=== PATIENT | male | born 1965 | race Caucasian/White ===

== ENCOUNTER 2023-06-26 10:30 | Emergency (ER) | payer BC, SELFPAY ==
[2023-06-26 10:35] VITALS: BP 172/86; PULSE 68; RESP 18; TEMP 36.3; O2SAT 97; BMI 30.7
--- NOTE | 2023-06-26 11:01 | ED.WOUNDLAC1 ---
HPI - Wound/Laceration General Chief Complaint: Wound/Laceration Stated Complaint: SORE SPOT ON BOTTOM OF R FOOT Time Seen by Provider: 06/26/23 10:50 Source: patient Mode of arrival: walk-in Limitations: no limitations History of Present Illness HPI narrative: is patient's here for evaluation of ongoing recurrent infection of his right foot. He is under the care of a Dr. North, environmental services supervisor. 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 He is here today because he was on his feet a lot yesterday while working and there is increasing swelling of his right great toe. He has severe neuropathy but he starting to develop just a small amount of discomfort and swelling and that's why he knows something is wrong. He did not take any leftover antibiotics. He has had a history of MRSA in the past. His last antibiotic use here in January was for cephalexin. He's not had fever shakes or chills. No red streaks or the dorsum of the foot or the lower leg. Related Data Home Medications Medication Instructions Recorded Confirmed amlodipine 5 mg tablet 5 mg PO DAILY 06/26/23 06/26/23 apixaban 5 mg tablet (Eliquis) 5 mg PO DAILY 06/26/23 06/26/23 carvedilol 12.5 mg tablet 12.5 mg PO DAILY 06/26/23 06/26/23 ibuprofen 800 mg tablet 800 mg PO Q8H PRN pain 06/26/23 06/26/23 Allergies Allergy/AdvReac Type Severity Reaction Status Date / Time diphenhydramine Allergy Intermediate Verified 06/26/23 10:39 [From Benadryl] [facility] Medical History (Updated 06/26/23 @ 11:05 by Justin Villeda MD) Surgical History (Updated 06/26/23 @ 10:52 by Anne Raines) Social History Smoking status: Never smoker Exam Narrative Exam Narrative: awake alert very pleasant does not appear in distress. Vital signs are stable he's afebrile. Problem focus examination Examination of his right foot shows good neuro she is a good vascular supply with good capillary refill and strong pulses. There is no pallor or edema. There is no lymphangitis or red streaking. The right great toe has a callus on the plantar surface such chronic with a small opening but despite pressure and trying to exude any purulent material there was no purulent material and this open sore. There is mild erythema of the entire great toe. There is no necrotic tissue. There is no foul smell. Constitutional Vital Signs, click to edit/add: Last Vital Signs Temp 97.4 F L 06/26/23 10:35 Pulse 68 06/26/23 10:35 Resp 18 06/26/23 10:35 BP 172/86 H 06/26/23 10:35 Pulse Ox 97 06/26/23 10:35 O2 Del Method Room Air 06/26/23 10:35 Course Vital Signs Vital signs: Vital Signs Temperature 97.4 F L 06/26/23 10:35 Pulse Rate 68 06/26/23 10:35 Respiratory Rate 18 06/26/23 10:35 Blood Pressure 172/86 H 06/26/23 10:35 Pulse Oximetry 97 06/26/23 10:35 Oxygen Delivery Method Room Air 06/26/23 10:35 Temperature 97.4 F L 06/26/23 10:35 Pulse Rate 68 06/26/23 10:35 Respiratory Rate 18 06/26/23 10:35 Blood Pressure 172/86 H 06/26/23 10:35 Pulse Oximetry 97 06/26/23 10:35 Oxygen Delivery Method Room Air 06/26/23 10:35 MDM - Wound/Laceration MDM Narrative Medical decision making narrative: patient with multiple recurrent infections and amputations due to peripheral neuropathy. Were recommending that he stay off his leg for the next forty-eight hours Betadine soaks at least every [address] him on cephalexin and doxycycline. He should see his environmental services supervisor on Wednesday to consider limited due to [place] of any skin that needs to be true [place] away Discharge Plan Discharge Chief Complaint: Wound/Laceration Clinical Impression: Soft tissue infection Patient Disposition: Home, Self-Care Time of Disposition Decision: 11:04 Prescriptions / Home Meds: No Action amlodipine 5 mg tablet 5 mg PO DAILY Eliquis 5 mg tablet 5 mg PO DAILY carvedilol 12.5 mg tablet 12.5 mg PO DAILY ibuprofen 800 mg tablet 800 mg PO Q8H PRN (Reason: pain) Additional Instructions: see environmental services supervisor Wednesday. Cephalexin/doxycycline/warm soaks soapy water three times a day Stand Alone Forms: Portal Instructions
== END 2023-06-26 11:30 | disposition home or self-care (01) ==
PROVIDERS: Emergency Provider Emergency Medicine Emergency Medical Services; PCP Family Medicine
DX: L08.9 Local infection of the skin and subcutaneous tissue, unspecified (principal); Z89.422 Acquired absence of other left toe(s); Z89.421 Acquired absence of other right toe(s); Z89.412 Acquired absence of left great toe; Z86.14 Personal history of Methicillin resistant Staphylococcus aureus infection; Z79.899 Other long term (current) drug therapy; Z79.01 Long term (current) use of anticoagulants
CPT/HCPCS: 99282